=== PATIENT | male | born 1970 | race African-American/Black ===

== ENCOUNTER → 2024-05-03 | Day surgery (SDC) | payer BC ==
[~2024-05-03] MED LIST: DEXMEDETOMIDINE HCL 200 MCG/2 ML VIAL ONE; FENTANYL CITRATE/PF 100MCG/2 ML INJ ONE; LIDOCAINE HCL 2% LOCAL INJ 5 ML SDV VIAL INJ ONE; METOCLOPRAMIDE HCL 10 MG/2ML VIAL ONE; OMEPRAZOLE40 MG PO; PROPOFOL IV EMULSION 10 MG/ML 50 ML VIAL IV ONE
[2024-05-03] MEDS: LACTATED RINGER'S 1,000 ML ONE (13:29)
[2024-05-03 15:30] VITALS: TEMP 97.6
[2024-05-03 15:50] VITALS: BP 112/82; PULSE 66; RESP 18; O2SAT 99
== END | disposition home or self-care (01) ==
LOC: OR 12:26
PROVIDERS: ATTEND Internal Medicine Gastroenterology
DX: K22.2 Esophageal obstruction (principal); Z12.11 Encounter for screening for malignant neoplasm of colon; K20.90 Esophagitis, unspecified without bleeding; K44.9 Diaphragmatic hernia without obstruction or gangrene; K29.50 Unspecified chronic gastritis without bleeding; K31.89 Other diseases of stomach and duodenum; R09.A2 Foreign body sensation, throat; D12.2 Benign neoplasm of ascending colon; D12.3 Benign neoplasm of transverse colon; K63.5 Polyp of colon; K64.8 Other hemorrhoids; Z01.810 Encounter for preprocedural cardiovascular examination; Z79.899 Other long term (current) drug therapy
CPT/HCPCS: 43239; 43450; 45380; 45385; 93005; J2003; J2470; J2704; J2765; J3010; J7121; 45378